=== PATIENT | female | born 2000 | race Hispanic/Latino ===

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

== ENCOUNTER 2022-04-02 13:54 | Emergency (ER) | payer MEDICAID ==
[~2022-04-02] VITALS: Ht 162.6 cm; Wt 86.2 kg
[2022-04-02 13:58] VITALS: BP 173/85
[2022-04-02] MEDS ORDERED: AMOX875T2 PO (14:31)
== END 2022-04-02 16:13 | disposition home or self-care (01) ==
LOC: EDH 13:54
DX: J02.0 Streptococcal pharyngitis (principal)
CPT/HCPCS: 87880

== ENCOUNTER 2023-11-08 02:17 | Inpatient (IN) | payer MEDICAID ==
[~2023-11-08] VITALS: Ht 170.2 cm; Wt 113.4 kg
[~2023-11-08 02:17] MED LIST changes: +IBUP-2070 PO; -PREN1COM14 PO
[2023-11-08 03:01] LABS: APPEARANCE,URINE CLEAR (CLEAR); BILIRUBIN,URINE NEGATIVE (NEGATIVE); COLOR,URINE LIGHT-YELLOW (YELLOW); GLUCOSE, URINE (UA) NEGATIVE (NEGATIVE); KETONES,URINE NEGATIVE (NEGATIVE); LEUKOCYTE ESTERASE ,URINE 250 Leu/uL (NEGATIVE); NITRATE,URINE NEGATIVE (NEGATIVE); OCCULT BLOOD,URINE SMALL (NEGATIVE); PH,URINE 6.5 (5.0-8.0); PROTEIN,URINE 30 mg/dL (NEGATIVE); UROBILINOGEN,URINE 0.2 mg/dL (0.2-1.0)
[2023-11-08 03:07] LABS: ADD UA MICROSCOPIC YES
[2023-11-08 03:08] LABS: AMPHET/METH SCREEN,URINE NEGATIVE (NEGATIVE); BARBITURATE SCREEN, URINE NEGATIVE (NEGATIVE); BENZODIAZEPINES SCREEN,URINE NEGATIVE (NEGATIVE); CANNABINOID SCREEN,URINE NEGATIVE (NEGATIVE); COCAINE SCREEN,URINE NEGATIVE (NEGATIVE); OPIATE SCREEN,URINE NEGATIVE (NEGATIVE); PHENCYCLIDINE SCREEN,URINE NEGATIVE (NEGATIVE)
[2023-11-08 03:09] LABS: BACTERIA,URINE MOD /HPF (None Seen); MUCUS,URINE RARE LPF (None Seen); RBC,URINE 26-50 /HPF (0-1); SQUAMOUS EPITHELIAL CELL,UR MOD /HPF (0-2)
[2023-11-08 04:17] LABS: MEAN CORPUSCULAR HEMOGLOBIN 28.3 pg (27.0-33.0); MEAN CORPUSCULAR HGB CONC 33.1 g/dL (32.0-36.0); MEAN CORPUSCULAR VOLUME 85.5 fL (79-99); RED BLOOD CELL COUNT(AUTO) 4.21 MIL/uL (4.00-5.50); RED CELL DISTRIBUTION WIDTH 15.4 % (11.0-15.5); WHITE BLOOD COUNT (AUTO) 10.6 K/uL (4.8-10.8)
[2023-11-08 04:37] LABS: HEMOGLOBIN A1C 5.6 % (4.0-6.0)
[2023-11-08 04:59] LABS: HIV 1&2 ANTIBODY Non-Reactive (Negative); HIV-1 p24 Antigen Non-Reactive (Negative)
[2023-11-08] MEDS ORDERED: AMPICILLIN 2GM+NS 100ML 100 ML IV ONE (05:51)
[2023-11-08] MEDS: AMPICILLIN 2GM+NS 100ML 100 ML IV SCH (05:54)
[2023-11-08] MEDS ORDERED: MEPERIDINE-PF 50 MG/ML SYG IVP PRN (06:00)
[2023-11-08] MEDS ORDERED: PROMETHAZINE HCL 25 MG/ML 1ML AMPULE IM PRN (06:00)
[2023-11-08] MEDS: LACTATED RINGERS 1000ML 1,000 ML IV PRN (06:04)
[2023-11-08] MEDS ORDERED: LIDOCAINE HCL 1% 20 ML VIAL ONE (06:42)
[2023-11-08] MEDS ORDERED: LANOLIN 30GM OINTMENT TP PRN (08:30)
[2023-11-08] MEDS ORDERED: WITCH HAZEL 1 PAD TP PRN (08:30)
[2023-11-08] MEDS ORDERED: ACETAMINOPHEN 325 MG TAB PO PRN (08:30)
[2023-11-08] MEDS ORDERED: BENZOCAINE/LANOLIN/ALOE VERA 60 ML AEROSOL TP PRN (08:30)
[2023-11-08] MEDS ORDERED: MEASLES/MUMPS/RUBELLA VACCINE, LIVE 0.5 ML/VIAL SQ PRN (08:30)
[2023-11-08] MEDS: IBUPROFEN 600 MG TABLET PO PRN (08:54)
[2023-11-08] MEDS: OXYTOCIN-LR 30 UNITS/500ML 500 ML IV SCH (08:58)
[2023-11-08 09:05] VITALS: BP 130/82; PULSE 80; RESP 20
[2023-11-08] MEDS: DOCUSATE SODIUM 100 MG CAP PO SCH (09:50)
[2023-11-08] MEDS: AMPICILLIN 1GM+NS 50ML 50 ML IV SCH (10:00)
[2023-11-08 11:33] LABS: RAPID PLASMA REAGIN NONREACTIVE (NONREACTIVE)
[2023-11-08 11:35] VITALS: BP 130/69; PULSE 86
[2023-11-08] MEDS: DIPH,PERTUSS(ACELL),TET VAC/PF 0.5 ML VIAL IM PRN (17:07)
[2023-11-08 17:09] VITALS: BP 139/75; PULSE 82
[2023-11-08 19:45] VITALS: BP 130/70; PULSE 83; RESP 20
[2023-11-08 23:50] VITALS: BP 138/67; PULSE 78; RESP 20
[2023-11-09 03:52] VITALS: BP 143/79; PULSE 63; RESP 20
[2023-11-09 07:29] VITALS: BP 126/76; PULSE 83
[2023-11-09 07:38] LABS: HEMATOCRIT 33.4 % (36-48); MEAN CORPUSCULAR HEMOGLOBIN 28.6 pg (27.0-33.0); MEAN CORPUSCULAR HGB CONC 32.6 g/dL (32.0-36.0); MEAN CORPUSCULAR VOLUME 87.7 fL (79-99); RED BLOOD CELL COUNT(AUTO) 3.81 MIL/uL (4.00-5.50); RED CELL DISTRIBUTION WIDTH 15.3 % (11.0-15.5); WHITE BLOOD COUNT (AUTO) 11.6 K/uL (4.8-10.8)
[2023-11-09] MEDS: ACETAMINOPHEN WITH CODEINE 1 TAB TAB PO PRN (07:51)
[2023-11-09 10:57] VITALS: BP 114/87; PULSE 85
== END 2023-11-09 14:25 | disposition home or self-care (01) | DRG 560 ==
LOC: EDH 02:17 → LDH 02:18 → OBSVTOIN 02:18 → WSH 09:05
PROVIDERS: ADMIT Obstetrics & Gynecology; ATTEND Obstetrics & Gynecology
PROC: 10E0XZZ Delivery of Products of Conception, External Approach (ICD-10-PCS; principal; 2023-11-08)
DX: O77.0 Labor and delivery complicated by meconium in amniotic fluid (principal); Z37.0 Single live birth; Z3A.38 38 weeks gestation of pregnancy
CPT/HCPCS: 36415; 76805; 80305; 81001; 83036; 85027; 86592; 86701; 86850; 86900; 86901; 87086; 87340; 87390; 90715; G0378; J0290